=== PATIENT | female | born 1980 | race Caucasian/White ===

== ENCOUNTER 2017-03-03 06:14 | Emergency (ER) | payer MEDICARE ==
[~2017-03-03] VITALS: Ht 160 cm; Wt 69.4 kg
[2017-03-03] MEDS ORDERED: BAYER ASA325 MG PO (06:35)
[2017-03-03] MEDS ORDERED: BACTRIM DS1 TAB PO (06:36)
[2017-03-03] MEDS ORDERED: IBUPROFEN600 MG PO (06:37)
[2017-03-03 07:19] VITALS: BP 122/82
== END 2017-03-03 07:40 | disposition home or self-care (01) ==
LOC: ED 06:14
PROC: 0H96XZZ Drainage of Back Skin, External Approach (ICD-10-PCS; principal; 2017-03-03)
DX: L02.212 Cutaneous abscess of back [any part, except buttock and flank] (principal)

== ENCOUNTER 2017-03-04 06:25 | Emergency (ER) | payer MEDICARE ==
[~2017-03-04] VITALS: Ht 160 cm; Wt 70.2 kg
[~2017-03-04 06:25] MED LIST: BACTRIM DS1 TAB PO; BAYER ASA325 MG PO; IBUPROFEN600 MG PO
[2017-03-04 06:59] VITALS: BP 107/68
== END 2017-03-04 07:08 | disposition home or self-care (01) ==
LOC: ED 06:25
DX: Z48.01 Encounter for change or removal of surgical wound dressing (principal)

== ENCOUNTER 2017-08-10 09:32 | Emergency (ER) | payer MEDICARE ==
[~2017-08-10] VITALS: Ht 160 cm; Wt 80.0 kg
[2017-08-10 10:25] LABS: HEMATOCRIT 40.1 % (37.0-47.0); HEMOGLOBIN 13.3 g/dl (12.0-16.0); IMMATURE GRANULOCYTES 0.3 % (0.0-1.0); MEAN CELL VOLUME 94.1 fL CALC (80.0-100.0); MEAN CORPUSCULAR HGB 31.2 pG CALC (26.0-32.0); MEAN CORPUSCULAR HGB CONC 33.2 g/L CALC (32.0-36.0); NEUT# 2.87 thou/uL (2.00-7.15); RED BLOOD COUNT 4.26 mill/uL (4.20-5.60); RED CELL DISTRI WIDTH 12.5 % (11.5-15.5)
[2017-08-10 11:25] LABS: URINE BILIRUBIN - DIPSTICK NEGATIVE (NEGATIVE); URINE BLOOD DIPSTICK NEGATIVE (NEGATIVE); URINE CLARITY CLEAR; URINE COLOR YELLOW; URINE GLUCOSE - DIPSTICK NEGATIVE (NEGATIVE); URINE KETONE NEGATIVE (NEGATIVE); URINE LEUK ESTERASE NEGATIVE (NEGATIVE); URINE NITRITE - DIPSTICK NEGATIVE (Negative); URINE PH 5.5 (4.5-8.0); URINE PROTEIN - DIPSTICK NEGATIVE (NEG-TRACE); URINE SPECIFIC GRAVITY <=1.005; URINE UROBILINOGEN - DIPSTICK 0.2 E.U./dL (0.2)
[2017-08-10 11:35] LABS: ALBUMIN 4.4 g/dL (3.2-5.0); ALKALINE PHOSPHATASE 58 u/l (38-126); AMYLASE 49 u/l (30-110); ANION GAP 13 (6-22 (CALC)); BILIRUBIN, TOTAL 0.7 mg/dL (0.0-1.4); BUN 13 mg/dL (7-17); BUN/CREATININE RATIO 21 (12-20 (CALC)); CALCIUM 9.6 mg/dL (8.4-10.2); CARBON DIOXIDE 24 mmol/l (22-30); CHLORIDE 113 mmol/l (95-108); CREATININE 0.6 mg/dL (0.5-1.0); GFR > 60 ML/MIN (>=60 (CALC)); GFR FOR AFR.AMER. > 60 ML/MIN (>=60 (CALC)); GLUCOSE 86 mg/dL (65-105); LIPASE 312 u/l (23-300); POTASSIUM 4.8 mmol/l (3.5-5.1); SGOT/AST 29 u/l (14-36); SGPT/ALT 30 u/l (9-52); SODIUM 146 mmol/l (137-146); TOTAL PROTEIN 7.1 g/dL (6.3-8.2)
[2017-08-10 11:43] LABS: MYOGLOBIN 23 ng/mL (0 - 62)
[2017-08-10] MEDS ORDERED: PREVACID30 M1 PO (13:09)
[2017-08-10] MEDS ORDERED: ULTRAM50 M1 PO (13:09)
[2017-08-10] MEDS ORDERED: ZOFRAN ODT4 MG PO (13:09)
[2017-08-10 13:20] VITALS: BP 140/75
== END 2017-08-10 13:47 | disposition home or self-care (01) ==
LOC: ED 09:32
PROVIDERS: Emergency Medicine
DX: R10.12 Left upper quadrant pain (principal); R10.32 Left lower quadrant pain; F17.210 Nicotine dependence, cigarettes, uncomplicated; Z87.11 Personal history of peptic ulcer disease; Z86.73 Personal history of transient ischemic attack (TIA), and cerebral infarction without residual deficits; Z87.442 Personal history of urinary calculi
CPT/HCPCS: Q9967

== ENCOUNTER 2018-12-12 15:55 | Emergency (ER) | payer MEDICARE ==
[~2018-12-12] VITALS: Ht 162.6 cm; Wt 72.7 kg
[~2018-12-12 15:55] MED LIST changes: +PREVACID30 M1 PO; +REGLAN10 MG PO; +ULTRAM50 M1 PO; +VENTOLIN HF1 IN; +ZOFRAN ODT4 MG PO; +[UNRECOGNIZED DRUG - OTHER] PO
[2018-12-12] MEDS ORDERED: TRAMADOL HYDROC50 MG PO (17:57)
[2018-12-12 18:02] VITALS: BP 113/76
== END 2018-12-12 18:02 | disposition home or self-care (01) ==
LOC: ED 15:55
DX: S80.211A Abrasion, right knee, initial encounter (principal); J44.9 Chronic obstructive pulmonary disease, unspecified; F17.210 Nicotine dependence, cigarettes, uncomplicated; W55.19XA Other contact with horse, initial encounter; Y93.K9 Activity, other involving animal care

== ENCOUNTER 2022-08-18 12:34 | Emergency (ER) | payer MEDICARE, MEDICAID ==
[~2022-08-18] VITALS: Ht 162.6 cm; Wt 77.0 kg
[~2022-08-18 12:34] MED LIST changes: +TRAMADOL HYDROC50 MG PO
[2022-08-18] MEDS ORDERED: FLEXERIL5 M1 PO (15:54)
[2022-08-18 16:07] VITALS: BP 119/82
== END 2022-08-18 16:09 | disposition home or self-care (01) ==
LOC: ED 12:34
DX: M54.6 Pain in thoracic spine (principal); J44.9 Chronic obstructive pulmonary disease, unspecified; F17.200 Nicotine dependence, unspecified, uncomplicated; Z86.73 Personal history of transient ischemic attack (TIA), and cerebral infarction without residual deficits